=== PATIENT | female | born 1940 | race Caucasian/White ===

== ENCOUNTER 2022-06-01 21:16 | Emergency (ER) | payer OTHER, MEDICARE ==
[2022-06-01 21:49] VITALS: BP 131/65; PULSE 98; RESP 17; TEMP 98.9; BMI 31.9
[2022-06-01 23:21] LABS: BASO % 0.3 % (0-2.0); HEMATOCRIT 34.2 % (32.4-45.2); HEMOGLOBIN 11.1 GM/dL (10.7-15.3); LYMPH % 5.1 % (8-40); MCH 26.8 pg (25.7-33.7); MCHC 32.3 g/dl (32.0-36.0); MEAN CELL VOLUME 83.1 fl (80-96); MEAN PLT VOLUME 8.6 fl (7.5-11.1); MONO % 7.3 % (3.8-10.2); NEUT % 87.3 % (42.8-82.8); PLATELET COUNT 313 10^3/uL (134-434); RBC 4.12 M/mm3 (3.60-5.2); RDW 16.3 % (11.6-15.6)
[2022-06-01 23:26] LABS: INR 1.1 (0.83-1.09); PROTHROMBIN TIME (PATIENT) 12.7 SEC (9.7-13.0)
[2022-06-01 23:28] LABS: ACTIVATED PTT 29.7 SECONDS (25.2-36.5)
[2022-06-01 23:48] LABS: ALBUMIN 3.9 g/dl (3.4-5.0); CALCIUM 9.9 mg/dL (8.5-10.1)
[2022-06-01 23:49] LABS: BLOOD UREA NITROGEN 16.7 mg/dL (7-18)
[2022-06-01 23:52] LABS: CREATININE 1.1 mg/dL (0.55-1.3)
[2022-06-01 23:53] LABS: BILIRUBIN,TOTAL 1.1 mg/dL (0.2-1); TOT PROT 7.8 g/dl (6.4-8.2)
== END 2022-06-02 00:59 | disposition home or self-care (01) ==
LOC: JER 21:16
DX: R14.0 Abdominal distension (gaseous) (principal)
CPT/HCPCS: 36415; 74176-TC; 80053; 83690; 85025; 85610; 85730; 93005; 93010; 99285-25

== ENCOUNTER 2023-12-11 17:02 | Emergency (ER) | payer OTHER, MEDICARE ==
[2023-12-11 17:07] VITALS: BMI 30.6
[2023-12-11] MEDS ORDERED: ACETAMINOPHEN 325 MG TABLET (FP) ONE (18:31)
[2023-12-11] MEDS: ACETAMINOPHEN 325 MG TABLET (FP) PO ONE (18:34)
[2023-12-11] MEDS ORDERED: ACETAMINOPHEN INJECTION 100 ML IVPB ONE (18:53)
[2023-12-11 19:10] LABS: BASO % 0.4 % (0-2.0); HEMATOCRIT 37.4 % (32.4-45.2); LYMPH % 7.3 % (8-40); MCHC 32.1 g/dl (32.0-36.0); MEAN CELL VOLUME 84.1 fl (80-96); MEAN PLT VOLUME 8.6 fl (7.5-11.1); MONO % 8.3 % (3.8-10.2); PLATELET COUNT 282 10^3/uL (134-434); RBC 4.44 M/mm3 (3.60-5.2); RDW 17.4 % (11.6-15.6); WHITE BLOOD COUNT 9.6 K/mm3 (4.0-10.0)
[2023-12-11 19:21] VITALS: BP 115/57; PULSE 87; RESP 20; TEMP 98.7
[2023-12-11 19:25] LABS: POTASSIUM 4.2 mmol/L (3.5-5.1)
[2023-12-11 19:28] LABS: ALBUMIN 3.8 g/dl (3.4-5.0); BLOOD UREA NITROGEN 23.6 mg/dL (7-18); CALCIUM 9.7 mg/dL (8.5-10.1)
[2023-12-11 19:33] LABS: BILIRUBIN,TOTAL 0.5 mg/dL (0.2-1); TOT PROT 7.7 g/dl (6.4-8.2)
[2023-12-11] MEDS: ACETAMINOPHEN 1000 MG/100 ML BAG IVPB ONE (19:35)
[2023-12-11 20:14] LABS: ERYTHROCYTE SEDIMENTATION RATE 48 mm/hr (0-30)
== END 2023-12-11 21:26 | disposition home or self-care (01) ==
LOC: JER 17:02
DX: S70.01XA Contusion of right hip, initial encounter (principal); M19.90 Unspecified osteoarthritis, unspecified site; R22.41 Localized swelling, mass and lump, right lower limb; M25.551 Pain in right hip; X58.XXXA Exposure to other specified factors, initial encounter
CPT/HCPCS: 36415; 73502-TC-RT-FY; 80053; 85025; 85651; 86140; 93970-TC; 99285-25